=== PATIENT | male | born 1970 | race Caucasian/White ===

== ENCOUNTER 2016-11-06 14:44 | Emergency (ER) | payer SELFPAY | END 2016-11-06 15:30 | disposition home or self-care (01) | LOC: ER 14:44 | DX: S68.120A Partial traumatic metacarpophalangeal amputation of right index finger, initial encounter (principal); J44.9 Chronic obstructive pulmonary disease, unspecified; Z87.891 Personal history of nicotine dependence; W31.2XXA Contact with powered woodworking and forming machines, initial encounter; Y92.009 Unspecified place in unspecified non-institutional (private) residence as the place of occurrence of the external cause ==